=== PATIENT | female | born 1995 | race Caucasian/White ===

== ENCOUNTER 2016-12-28 18:37 | Emergency (ER) | payer OTHER ==
[~2016-12-28] VITALS: Ht 165.1 cm; Wt 63.5 kg
[2016-12-28] MEDS ORDERED: cefTRIAXone SOD 250 MG VIAL (J0696) IM ONE (19:45)
[2016-12-28] MEDS ORDERED: AZITHROMYCIN 250 MG TAB PO ONE (19:45)
[2016-12-28] MEDS ORDERED: LIDOCAINE 1% MDV 20ML VIAL As Ordered ONE (19:47)
[2016-12-28] MEDS ORDERED: FLAG500T PO (20:21)
[2016-12-28 20:26] VITALS: BP 127/72
== END 2016-12-28 20:27 | disposition home or self-care (01) ==
LOC: M ED 19:25
DX: Z20.2 Contact with and (suspected) exposure to infections with a predominantly sexual mode of transmission (principal); N76.0 Acute vaginitis
CPT/HCPCS: 81025; 87210; 87491; 87591; 96372; 99284; J0696

== ENCOUNTER 2018-05-15 18:39 | Emergency (ER) | payer OTHER ==
[2018-05-15 19:25] LABS: CONTROL LINE UCG INT CTR LINE PRESENT; URINE PREG TEST NEGATIVE (NEGATIVE)
[2018-05-15 19:38] LABS: KETONE, URINE AUTO RFX NEGATIVE (NEGATIVE); MUCUS, URINE RFX SMALL (NEGATIVE); RBC, URINE AUTO RFX 12 /HPF (0-3); SQUAM EPITHELIAL CELL UR AURFX 4 /HPF (0-6)
[2018-05-15 19:48] LABS: LEUKOCYTE ESTERASE UR AUTO RFX 2+ (NEGATIVE); NITRITE, URINE AUTO RFX POSITIVE (NEGATIVE); WBC, URINE AUTO RFX 128 /HPF (0-3)
[2018-05-15] MEDS: CIPROFLOXACIN 500 MG TAB PO (20:24)
[2018-05-15] MEDS: PHENAZOPYRIDINE 100 MG TAB PO (20:24)
== END 2018-05-15 20:37 | disposition home or self-care (01) ==
LOC: M ED 18:39
DX: N39.0 Urinary tract infection, site not specified (principal); F17.200 Nicotine dependence, unspecified, uncomplicated
CPT/HCPCS: 84703

== ENCOUNTER 2018-11-18 10:18 | Day surgery (SDC) | payer OTHER ==
[~2018-11-18] VITALS: Ht 165.1 cm; Wt 80.3 kg
[~2018-11-18 10:18] MED LIST: CIPR-249 PO; FLAG500T PO; KETO10TAB PO; PHEN-500 PO; PYRI1TAB5 PO; bcp
[2018-11-18] MEDS ORDERED: LR 1,000 ML IV ONE (10:30)
[2018-11-18] MEDS ORDERED: DOXYCYCLINE HYCLATE 100 MG TAB PO ONE ×2 (11:00→14:00)
[2018-11-18 11:02] LABS: HEMATOCRIT 42.3 % (36.0-47.0); HEMOGLOBIN 14.1 g/dl (12.0-15.5); MEAN CORPUSCULAR HEMOGLOBIN 29.7 pg (27.0-33.0); MEAN CORPUSCULAR HGB CONC 33.3 g/dl (32.0-36.5); MEAN CORPUSCULAR VOLUME 89.2 fl (80.0-96.0); PLATELET COUNT, AUTOMATED 268 10^3/uL (150-450); RED BLOOD COUNT 4.74 10^6/uL (4.00-5.40); WHITE BLOOD COUNT 7.1 10^3/uL (4.0-10.0)
[2018-11-18] MEDS ORDERED: ONDANSETRON 4MG/2ML VIAL (J2405) As Ordered ONE ×2 (11:44→11:45)
[2018-11-18] MEDS ORDERED: MIDAZOLAM INJ 2 MG/2 ML VIAL (J2250) As Ordered ONE (11:44)
[2018-11-18] MEDS ORDERED: PROPOFOL 200 MG/20 ML VIAL As Ordered ONE (11:44)
[2018-11-18] MEDS ORDERED: dexameTHASONE 4 MG/ML 1ML VIAL (J1100) As Ordered ONE (11:44)
[2018-11-18] MEDS ORDERED: LIDOCAINE 2% INJ 100 MG/5 ML SDV (FOR ANES.) As Ordered ONE (11:44)
[2018-11-18] MEDS ORDERED: KETOROLAC 60 MG/2 ML VIAL (J1885) As Ordered ONE (11:44)
[2018-11-18] MEDS ORDERED: fentaNYL 100 MCG/2 ML INJECTION (J3010) As Ordered ONE (11:45)
[2018-11-18] MEDS ORDERED: LIDOCAINE 1% SDV INJ 30 ML VIAL As Ordered ONE (12:44)
[2018-11-18] MEDS ORDERED: SILVER NITRATE APPLICATOR As Ordered ONE (13:03)
[2018-11-18] MEDS ORDERED: KETOROLAC 30 MG/ML VIAL (J1885) IV ONE (14:00)
[2018-11-18] MEDS ORDERED: ONDANSETRON 4MG/2ML VIAL (J2405) IV PRN (14:00)
[2018-11-18] MEDS ORDERED: LR 1,000 ML IV SCH (14:00)
[2018-11-18] MEDS ORDERED: PERCOCET 5MG/325MG TAB PO PRN ×2 (14:00)
[2018-11-18 14:45] VITALS: BP 117/74
--- NOTE | 2018-11-19 12:39 | RO ---
DATE OF PROCEDURE: 11/18/2018 PREOPERATIVE DIAGNOSIS: Missed . POSTOPERATIVE DIAGNOSIS: Missed . PROCEDURE: Suction dilatation and curettage. SURGEON: Jerod Islas DO TELECOMMUNICATIONS OPERATOR: None. ANESTHESIA: IV sedation. FLUIDS: 600 mL of lactated Ringer (LR). URINE OUTPUT: 100 mL via straight catheter. ESTIMATED BLOOD LOSS (EBL): 10 mL. COMPLICATIONS: None. ANTIBIOTICS: 100 mg doxycycline before procedure and 200 mg doxycycline after procedure. DETAILED PROCEDURE DESCRIPTION: The risks, benefits, indications, and alternatives of the procedure were reviewed with the patient and informed consent was obtained. The patient was taken to the operating room where IV sedation was obtained without difficulty. The patient was then placed in the lithotomy position using Nikunj stirrups. An exam under anesthesia was then performed, which was notable for a midline mobile 8 week sized uterus. The patient was then prepped and draped in the usual sterile fashion. The bladder was drained using an in-and-out catheter. A surgical time-out was then performed and the patient's identity and planned procedure were confirmed with the operative team. A sterile speculum was then placed in the patient's vagina and the cervix was visualized. A paracervical block was then performed using approximately 10 mL of 1% lidocaine without epinephrine. A single-tooth tenaculum was then used to grasp the anterior lip of the cervix. The cervix was then gently serially dilated to a size 18 Irish with a Sahil dilator. An 8 mm curved suction catheter was then introduced into the uterine cavity and gently advanced to the uterine fundus. The suction device was then activated to 60 mmHg and the catheter was rotated to clear the uterus of the products of conception. Four passes were performed with a moderate amount of tissue obtained. A gentle sharp curettage was then performed until uterine cri was noted in all planes. Two more passes with the suction catheter were then performed with minimal tissue obtained. All tissue obtained was sent to pathology for review. The single-tooth tenaculum was then removed from the anterior lip of the cervix. The tenaculum sites were noted to be hemostatic. The cervix was also hemostatic. All instruments were then removed from the patient's vagina. A vaginal sweep was performed and confirmed that no retained foreign objects remained in the vagina. At the completion of the case, the sponge, instrument and needle counts were correct times two. The patient tolerated the procedure well and was taken to the postanesthesia care unit (PACU) in the stable condition. SILVIA
== END 2018-11-18 15:20 | disposition home or self-care (01) ==
LOC: M SDC 10:18
PROVIDERS: ATTEND Obstetrics & Gynecology
DX: O02.1 Missed abortion (principal); Z72.0 Tobacco use
CPT/HCPCS: 36415; 59820; 85027; 86850; 86900; 86901; 88305; J1100; J1885; J2250; J2405; J3010

== ENCOUNTER → 2024-01-13 | Outpatient (CLI) | payer OTHER ==
[~2024-01-13] MED LIST changes: +PROHANCE 279.3MG/ML 15ML VIAL ONE
== END ==
LOC: M PLAIMG 14:47
PROVIDERS: ATTEND Physician Assistant
DX: Z15.01 Genetic susceptibility to malignant neoplasm of breast (principal)
CPT/HCPCS: A9576; C8908

== ENCOUNTER → 2025-01-21 | Outpatient (CLI) | payer OTHER ==
[~2025-01-21] MED LIST changes: -PROHANCE 279.3MG/ML 15ML VIAL ONE
== END ==
LOC: M WHC 14:35
PROVIDERS: ATTEND General Practice
DX: Z12.31 Encounter for screening mammogram for malignant neoplasm of breast (principal); Z15.01 Genetic susceptibility to malignant neoplasm of breast; Z80.3 Family history of malignant neoplasm of breast; Z80.41 Family history of malignant neoplasm of ovary; R92.333 Mammographic heterogeneous density, bilateral breasts

== ENCOUNTER → 2025-07-08 | Outpatient (CLI) | payer OTHER ==
[~2025-07-08] MED LIST changes: +PROHANCE 279.3MG/ML 15ML VIAL ONE
== END ==
LOC: M PLAIMG 07:59
PROVIDERS: ATTEND General Practice
DX: Z15.01 Genetic susceptibility to malignant neoplasm of breast (principal); Z80.3 Family history of malignant neoplasm of breast; Z80.41 Family history of malignant neoplasm of ovary
CPT/HCPCS: A9576; C8908